=== PATIENT | female | born 1960 | race Caucasian/White ===

== ENCOUNTER 2019-05-27 22:25 | Emergency (ER) | payer MEDICARE, OTHER ==
[~2019-05-27] VITALS: Ht 162.6 cm; Wt 61.2 kg
[2019-05-27] MEDS ORDERED: ONDANSETRON HCL/PF 4 MG/2 ML VIAL ONE (22:42)
[2019-05-27] MEDS ORDERED: MORPHINE SULFATE INJ 2 MG/ML DISP.SYRIN ONE (22:43)
[2019-05-27 22:55] LABS: BASOPHILS # (AUTO) 0.3 /CMM (0.0-0.2); BASOPHILS % (AUTO) 4.1 % (0.0-2.0); EOSINOPHILS % (AUTO) 7.1 % (0.0-6.0); HEMATOCRIT 35 % (33-45); HEMOGLOBIN 12.3 g/dL (11.5-14.8); LYMPHOCYTES # (AUTO) 1.8 /CMM (0.8-4.8); LYMPHOCYTES % (AUTO) 28.3 % (20.0-44.0); MEAN CORPUSCULAR HGB CONC 35 g/dl (31.0-36.0); MEAN CORPUSCULAR VOLUME 101 fL (82-100); MONOCYTES # (AUTO) 0.3 /CMM (0.1-1.30); MONOCYTES % (AUTO) 5.5 % (2.0-12.0); NEUTROPHILS # (AUTO) 3.4 /CMM (1.8-8.9); PLATELET COUNT (AUTO) 287 /CMM (150-450); RED BLOOD CELL COUNT(AUTO) 3.49 MIL/uL (4.0-5.2); WHITE BLOOD COUNT (AUTO) 6.2 K/uL (4.3-11.0)
[2019-05-27 22:58] LABS: APPEARANCE,URINE Clear (CLEAR); BILIRUBIN,URINE Negative (NEGATIVE); BLOOD, URINE Negative Ery/uL (NEGATIVE); COLOR,URINE Yellow (YELLOW); KETONES,URINE Negative (NEGATIVE); LEUKOCYTE ESTERASE ,URINE Negative (NEGATIVE); NITRITE, URINE Negative (NEGATIVE); PROTEIN,URINE 30 mg/dl (NEGATIVE); UGLUCOSE Negative (NEGATIVE); UROBILINOGEN,URINE 0.2 EU/dL (0.2)
--- NOTE | 2019-05-27 22:59 | NUR ---
BIBSELF W/ FRIEND TO ER BED 4. AAOX4. NO RESP DISTRESS NOTED. AMBULATORY. C/O ABDOMINAL PAIN X 3 DAYS. PT REPORTS PAIN ON THE LEFT AND RIGHT LATERAL ABDOMEN. RATES PAIN AT 6/10. AGGREVATED BY MOVEMENT SUCH STANDING UP FROM LYING OR SITTING AND BENDING DOWN. REPORT PAIN CRAMPING AND TIGHTNESS FEELING. PT DENIES CP. NO N/V. MD WAS T BEDSIDE FOR EVAL. ORDERS RECEIVED NOTED AND CARRIED OUT. IV LINE OBTAINED ON THE R AC 20G. BLOOD DRAWN AND GIVEN TO ATTENDANT CAMPGROUND AT BEDSIDE.
[2019-05-27] MEDS ORDERED: ONDANSETRON HCL/PF 4 MG/2 ML VIAL IVP ONE (23:00)
[2019-05-27] MEDS ORDERED: IV NS 0.9% 500 ML BAG IV ONE (23:00)
[2019-05-27] MEDS ORDERED: MORPHINE SULFATE INJ 2 MG/ML DISP.SYRIN IV ONE (23:00)
[2019-05-27 23:07] LABS: CALCIUM, SERUM 8.3 mg/dL (8.5-10.1); CARBON DIOXIDE 27 mmol/L (21-32); CHLORIDE 96 mmol/L (98-107); CREATININE 0.6 mg/dL (0.6-1.3); GLUCOSE 95 mg/dL (74-106); POTASSIUM 4.2 mmol/L (3.5-5.1); SODIUM SERUM 129 mmol/L (136-145); UREA NITROGEN, BLOOD 14 mg/dL (7-18)
[2019-05-27] MEDS ORDERED: KETOROLAC TROMETHAMINE INJ 30 MG/ML VIAL ONE (23:09)
[2019-05-27 23:13] LABS: ALANINE AMINOTRANSFERASE 35 U/L (12-78); ALBUMIN 3.8 g/dL (3.4-5.0); ALKALINE PHOSPHATASE 104 U/L (46-116); ASPARTATE AMINOTRANSFERASE 24 U/L (15-37); BILIRUBIN,DIRECT 0.1 mg/dL (0.0-0.2); BILIRUBIN,TOTAL 0.4 mg/dL (0.2-1.0); LIPASE 313 U/L (73-393); TOTAL PROTEIN, SERUM 6.1 g/dL (6.4-8.2)
[2019-05-27 23:18] LABS: BACTERIA,URINE Many /HPF (None Seen); RBC,URINE 0-2 /HPF (0-2); SQUAMOUS EPITHELIAL CELL,UR Moderate /HPF (None Seen); YEAST,URINE Few /HPF (None Seen)
[2019-05-27] MEDS ORDERED: KETOROLAC TROMETHAMINE INJ 30 MG/ML VIAL IV ONE (23:30)
--- NOTE | 2019-05-27 23:53 | NUR ---
Patient discharged to home in stable condition. Written and verbal after care instructions given. Patient verbalizes understanding of instruction.IV removed. Catheter intact and site benign. Pressure and 4x4 applied to site. No bleeding noted. Pt ambulatory with a steady gait
[2019-05-27 23:54] VITALS: BP 119/67
== END 2019-05-27 23:56 | disposition home or self-care (01) ==
LOC: ER 22:26
DX: K59.00 Constipation, unspecified (principal); R11.2 Nausea with vomiting, unspecified; F31.9 Bipolar disorder, unspecified
CPT/HCPCS: 36415; 71045; 74176; 80048; 80076; 81001; 83690; 84484; 85025; 85730; 87086; 93005; 96374; 96375; 99284; J1885; J2405; J7030; J7040; 81000-TC; J2270

== ENCOUNTER 2019-05-29 23:43 | Emergency (ER) | payer MEDICARE, OTHER ==
[~2019-05-29] VITALS: Ht 162.6 cm; Wt 60.3 kg
[2019-05-29 23:49] VITALS: BP 154/1
[2019-05-30] MEDS ORDERED: KETOROLAC TROMETHAMINE INJ 60 MG/2 ML VIAL IM ONE ×2 (00:15→01:30)
[2019-05-30] MEDS ORDERED: BACLOFEN (10 MG) 10 MG TABLET ONE (00:15)
[2019-05-30] MEDS ORDERED: BACLOFEN (10 MG) 10 MG TABLET PO ONE (01:30)
== END 2019-05-30 01:52 | disposition home or self-care (01) ==
LOC: ER 23:44
DX: M62.830 Muscle spasm of back (principal); F31.9 Bipolar disorder, unspecified
CPT/HCPCS: 96372; 99283; J1885

== ENCOUNTER 2019-07-21 10:34 | Emergency (ER) | payer OTHER ==
[~2019-07-21] VITALS: Ht 162.6 cm; Wt 73.5 kg
[2019-07-21 10:44] VITALS: BP 131/74
[2019-07-21] MEDS ORDERED: HYDROMORPHONE 1 MG/1 ML DISP.SYRIN ONE (11:14)
[2019-07-21] MEDS ORDERED: KETOROLAC TROMETHAMINE INJ 30 MG/ML VIAL ONE (11:14)
[2019-07-21] MEDS ORDERED: KETOROLAC TROMETHAMINE INJ 30 MG/ML VIAL IM ONE (11:30)
[2019-07-21] MEDS ORDERED: HYDROMORPHONE 1 MG/1 ML DISP.SYRIN IM ONE (11:30)
[2019-07-21] MEDS ORDERED: LEVO75TA7 PO (16:00)
[2019-07-21] MEDS ORDERED: GABA600T12 PO (16:00)
[2019-07-21] MEDS ORDERED: TRAM50TA2 PO (16:00)
[2019-07-21] MEDS ORDERED: BACL10TA PO (16:00)
[2019-07-21] MEDS ORDERED: BUPR150T10 PO (16:00)
[2019-07-21] MEDS ORDERED: HYDR-3972 PO (16:00)
[2019-07-21] MEDS ORDERED: PROG100C15 PO (16:00)
[2019-07-21] MEDS ORDERED: TRAZ-252 PO (16:00)
[2019-07-21] MEDS ORDERED: QUET100T PO (16:00)
[2019-07-22] MEDS ORDERED: PROG100C15 PO (10:13)
[2019-07-22] MEDS ORDERED: FLUO40CA49 PO (10:13)
== END 2019-07-21 13:28 | disposition home or self-care (01) ==
LOC: ER 10:35
DX: G89.29 Other chronic pain (principal); M54.5 Low back pain; F31.9 Bipolar disorder, unspecified; Z60.2 Problems related to living alone
CPT/HCPCS: 96372 ×2; 99283; J1170; J1885

== ENCOUNTER 2019-07-21 13:47 | Inpatient (IN) | payer OTHER ==
[~2019-07-21] VITALS: Ht 162.6 cm; Wt 73.5 kg
--- NOTE | 2019-07-21 13:47 | NUR ---
PT RECENTLY DISCHARGED, BACK FROM SAME REASON, CHRONIC BACK PAIN, PT AAOX4, -SOB, NAD NOTED, VSS, PENDING MD PRABHAKAR
[2019-07-21 14:21] LABS: BASOPHILS # (AUTO) 0.1 /CMM (0.0-0.2); BASOPHILS % (AUTO) 0.8 % (0.0-2.0); EOSINOPHILS % (AUTO) 2.9 % (0.0-6.0); HEMATOCRIT 40 % (33-45); LYMPHOCYTES % (AUTO) 21.8 % (20.0-44.0); MEAN CORPUSCULAR HGB CONC 35 g/dl (31.0-36.0); MEAN CORPUSCULAR VOLUME 102 fL (82-100); MONOCYTES # (AUTO) 0.6 /CMM (0.1-1.30); MONOCYTES % (AUTO) 6.2 % (2.0-12.0); NEUTROPHILS # (AUTO) 6.1 /CMM (1.8-8.9); NEUTROPHILS % (AUTO) 68.3 % (43.0-81.0); PLATELET COUNT (AUTO) 306 /CMM (150-450); RED BLOOD CELL COUNT(AUTO) 3.98 MIL/uL (4.0-5.2)
[2019-07-21 14:28] LABS: CALCIUM, SERUM 9.5 mg/dL (8.5-10.1); CREATININE 1.1 mg/dL (0.6-1.3); POTASSIUM 3.7 mmol/L (3.5-5.1)
--- NOTE | 2019-07-21 14:35 | NUR ---
epic paged for panel call
--- NOTE | 2019-07-21 14:45 | NUR ---
panel call in progress
--- NOTE | 2019-07-21 15:01 | NUR ---
REPORT GIVEN TO MARIANO HERNANDEZ FOR MONI PT WILL BE TRANSPORTED TO 3RD FLOOR
--- NOTE | 2019-07-21 15:15 | NUR ---
MS RN NOTES PATIENT ARRIVED AT UNIT [facility]IA [facility], REPORT RECEIVED FROM KRISTI HERNANDEZ. PATIENT AWAKE, A/O X 3. NO ACUTE DISTRESS. NO CHANGES IN LOC NOTED. PATIENT ABLE TO TRANSFER FROM [facility] [facility] TO BED WITH HAND-HELD ASSISTANCE. ABLE TO STAND UP AND SIT FROM [facility] TO HOSPITAL BED. PATIENT ADMITTED UNDER MEDICAL SUPERVISION OF DR ROACH, AWARE OF PATIENT ARRIVAL. PATIENT ORIENTED TO UNIT, STAFF, PLAN OF CARE, PATIENT VERBALIZED UNDERSTANDING. SAFETY PRECAUTIONS IN PLACE. WILL CONTINUE TO MONITOR. BED LOCKED AND IN LOW POSITION. BILATERAL UPPER SIDE RAILS UP AND LOCKED. CALL LIGHT WITHIN EASY REACH
--- NOTE | 2019-07-21 15:20 | NUR ---
pt transported to 3rd floor
[2019-07-21 16:00] VITALS: BP 162/87
[2019-07-21] MEDS ORDERED: HYDR-3972 PO (16:00)
[2019-07-21] MEDS ORDERED: QUET100T PO (16:00)
[2019-07-21] MEDS ORDERED: LEVO75TA7 PO (16:00)
[2019-07-21] MEDS ORDERED: TRAZ-252 PO (16:00)
[2019-07-21] MEDS ORDERED: PROG100C15 PO (16:00)
[2019-07-21] MEDS ORDERED: GABA600T12 PO (16:00)
[2019-07-21] MEDS ORDERED: BUPR150T10 PO (16:00)
[2019-07-21] MEDS ORDERED: BACL10TA PO (16:00)
[2019-07-21] MEDS ORDERED: TRAM50TA2 PO (16:00)
--- NOTE | 2019-07-21 16:20 | NUR ---
MS RN NOTES PATIENT REFUSED SKIN ASSESSMENT. RISKS AND BENEFITS EXPLAINED BUT TO NO AVAIL. PATIENT STRONGLY REFUSED. WILL CONTINUE TO MONITOR
[2019-07-21] MEDS ORDERED: ONDANSETRON HCL/PF 4 MG/2 ML VIAL IVP PRN (16:30)
[2019-07-21] MEDS ORDERED: Z GUARD REMEDY 2 OZ OINT TP PRN (16:30)
[2019-07-21] MEDS ORDERED: ACETAMINOPHEN 325 MG TABLET PO PRN (16:30)
[2019-07-21] MEDS ORDERED: ZOLPIDEM TARTRATE 5 MG TABLET PO PRN (16:30)
[2019-07-21] MEDS ORDERED: GABAPENTIN 400 MG CAPSULE PO SCH (17:00)
[2019-07-21] MEDS: buPROPion SR 150 MG TABLET.ER PO SCH (17:05)
[2019-07-21] MEDS: HYDROCODONE/APAP 5/325MG 1 EACH TABLET PO PRN (17:07)
[2019-07-21] MEDS: GABAPENTIN 300 MG CAPSULE PO SCH (17:08)
--- NOTE | 2019-07-21 17:37 | NUR ---
MS RN NOTES PATIENT AGREED TO CHANGE SHIRT TO [facility]OSPITAL [facility] BUT REFUSED TO REMOVE HER PANTS. ABLE TO DO SKIN ASSESSMENT WITH BOTH FEET AND BOTH UPPER EXTREMITIES, TORSO AND BACK, NO SKIN BREAKDOWN NOTED. UNABLE TO DO FURTHER SKIN ASSESSMENT PATIENT CONTINUES TO REFUSE TO CHANGE OR REMOVE PANTS. RISKS AND BENEFITS EXPLAINED BUT TO NO AVAIL. PATIENT REFUSED FURTHER SKIN ASSESSMENT. WILL CONTINUE TO MONITOR
--- NOTE | 2019-07-21 18:42 | NUR ---
MS RN CLOSING NOTES PATIENT IS RESTING IN BED WITH UPPER SIDE RAILS UP X2, BED IN LOW LOCKED POSITION, SEMI-FOWLERS. NO CHANGES IN LOC NOTED, NO ACUTE DISTRESS. WILL TRANSFER CONTINUATION OF CARE TO NEXT SHIFT.
--- NOTE | 2019-07-21 19:10 | NUR ---
MS/RN OPENING NOTES PT RECEIVED AWAKE, SITTING UP IN BED. A/OX4. ON ROOM AIR, BREATHING EVEN AND UNLABORED. IN NO ACUTE RESPIRATORY DISTRESS. NOTES BACK PAIN AT A TOLERABLE LEVEL OF 4/10 CURRENTLY. RECEIVED DAILY DOSE OF NORCO ALREADY. IV TO RAC SALINE LOCKED. BED IN LOW/LOCKED POSITION WITH CALL LIGHT IN REACH. BILAT. UPPER SIDE RAILS IN PLACE. ENCOURAGED USE OF CALL LIGHT AND VERBALIZED UNDERSTANDING. WILL CONTINUE TO MONITOR
[2019-07-21 20:00] VITALS: BP 119/72
[2019-07-21] MEDS: ENOXAPARIN SODIUM 40 MG/0.4 ML DISP.SYRIN SQ SCH (21:00)
[2019-07-21] MEDS: TRAZODONE 50 MG TABLET PO SCH (21:23)
[2019-07-21] MEDS: QUETIAPINE FUMARATE 100 MG TABLET PO SCH (21:23)
--- NOTE | 2019-07-21 21:35 | NUR ---
MS/RN NOTES PT REFUSED SCHEDULED LOVENOX DESPITE EDUCATION OF RISKS/BENEFITS X3. STILL STRONGLY REFUSING
--- NOTE | 2019-07-21 21:40 | NUR ---
MS/RN NOTES ABLE TO REMOVE PT'S PANTS/UNDERWEAR FOR SKIN CHECK, HOWEVER PT UNABLE TO TURN TO CHECK THE BACK. SKIN CLEAR OTHERWISE
[2019-07-22] MEDS: BACLOFEN (10 MG) 10 MG TABLET PO PRN ×2 (01:15→21:43)
[2019-07-22 06:41] LABS: BASOPHILS % (AUTO) 0.6 % (0.0-2.0); HEMATOCRIT 34 % (33-45); LYMPHOCYTES # (AUTO) 1.4 /CMM (0.8-4.8); LYMPHOCYTES % (AUTO) 16.6 % (20.0-44.0); MEAN CORPUSCULAR HGB CONC 36 g/dl (31.0-36.0); MEAN CORPUSCULAR VOLUME 99 fL (82-100); MONOCYTES # (AUTO) 0.5 /CMM (0.1-1.30); MONOCYTES % (AUTO) 6.3 % (2.0-12.0); NEUTROPHILS # (AUTO) 6.1 /CMM (1.8-8.9); NEUTROPHILS % (AUTO) 73.5 % (43.0-81.0); PLATELET COUNT (AUTO) 251 /CMM (150-450); RED BLOOD CELL COUNT(AUTO) 3.38 MIL/uL (4.0-5.2); WHITE BLOOD COUNT (AUTO) 8.2 K/uL (4.3-11.0)
--- NOTE | 2019-07-22 06:50 | NUR ---
MS/RN CLOSING NOTES PT RESTING IN BED. A/OX4. REMAINS ON ROOM AIR, BREATHING EVEN AND UNLABORED. DENIES SOB, IN NO ACUTE DISTRESS. INTERMITTENT MUSCLE SPASMS DURING SHIFT. COMFORTABLE AT THIS TIME. REFUSED TURNING/REPOSITIONING AND SKIN CHECK TO THE BACK. REFUSED PM/RODRIGO CARE MULTIPLE TIMES DURING SHIFT DESPITE EDUCATION ON HYGIENE. "WILL DO IT IN THE MORNING". IV TO RAC PATENT AND INTACT. BED REMAINS IN LOW/LOCKED POSITION WITH CALL LIGHT IN REACH. HOB ELEVATED. SIDE RAILS UPX3. WILL ENDORSE TO DAY SHIFT RN MONI
[2019-07-22 07:04] LABS: ALBUMIN 3.6 g/dL (3.4-5.0); BILIRUBIN,TOTAL 0.5 mg/dL (0.2-1.0); CALCIUM, SERUM 9.3 mg/dL (8.5-10.1); CREATININE 1.1 mg/dL (0.6-1.3); POTASSIUM 4.1 mmol/L (3.5-5.1); TOTAL PROTEIN, SERUM 6.3 g/dL (6.4-8.2)
--- NOTE | 2019-07-22 07:33 | NUR ---
MS RN OPENING NOTE PATIENT IN BED RESTING COMFORTABLY. PATIENT IN NO ACUTE DISTRESS. NO SOB NOTED. PATIENT BREATHING IS EVEN AND UNLABORED. PATIENT STATES BACK PAIN THAT IS 5/10 AND IS TOLERABLE. HOB IS ELEVATED. SAFETY PRECAUTIONS IN PLACE. PATIENT BED IS LOCKED AND IN LOWEST POSITION. CALL LIGHT WITHIN REACH. WILL CONTINUE TO MONITOR.
[2019-07-22 08:00] VITALS: BP 139/87
[2019-07-22] MEDS: GABAPENTIN 300 MG CAPSULE PO SCH ×3 (09:15→18:48)
[2019-07-22] MEDS: LEVOTHYROXINE SODIUM 75 MCG TABLET PO SCH (09:15)
[2019-07-22] MEDS: buPROPion SR 150 MG TABLET.ER PO SCH ×2 (09:15→18:48)
[2019-07-22] MEDS ORDERED: FLUO40CA49 PO (10:13)
[2019-07-22] MEDS ORDERED: PROG100C15 PO (10:13)
[2019-07-22] MEDS: HYDROCODONE/APAP 5/325MG 1 EACH TABLET PO PRN (11:25)
[2019-07-22] MEDS ORDERED: DIAZEPAM 5 MG/ML 2 ML DISP.SYRIN IV PRN (14:00)
[2019-07-22] MEDS: LORAZEPAM INJ 2 MG/ML VIAL IV PRN (15:52)
[2019-07-22 16:00] VITALS: BP 137/80
--- NOTE | 2019-07-22 18:10 | NUR ---
MS RN NOTE PATIENT CAME BACK FROM MRI. PER KE AUDIO ENGINEER, WITNESSED ASSISTED PATIENT FALL AT MRI ROOM. PER KE PATIENT HAD BACK MUSCLE SPASMS AND WHEN SWITCHING TO DO NEXT MRI FROM THORACIC TO MRI OF BRAIN PATIENT HAD MUSCLE SPASM DURING SWITCH. AND FELL SLOWLY WITH ASSISTANCE FROM KE TO GROUND WITH NO HARD IMPACT. WHEN MRI COMPLETED AND BACK TO FLOOR. PATIENT ASSESSED, NO NEW SKIN BREAKDOWN NOTED. NO NEW PAIN NOTED IN EXTREMITIES. NO BRUISING NOTED. VITAL SIGNS WNL. PATIENT BACK IN BED RESTING COMFORTABLY. PATIENT STATED " I DONT REALLY WANT TO TALK RIGHT NOW, IM TIRED BUT I DID FALL SLOWLY WITH HELP DUE TO MY BACK PAIN." PATIENT IN NO ACUTE DISTRESS. NO SOB NOTED. PATIENT BREATHING IS EVEN AND UNLABORED. NOTIFIED ALCIDES ROACH AND MADE AWARE, NO NEW ORDERS AT THIS TIME. WILL CONTINUE TO MONITOR.
[2019-07-22 18:30] VITALS: BP 136/72
--- NOTE | 2019-07-22 18:45 | NUR ---
MS RN CLOSING NOTE PATIENT IN BED SLEEPING COMFORTABLY. PATIENT IN NO ACUTE DISTRESS. NO SOB NOTED. PATIENT BREATHING IS EVEN AND UNLABORED. PATIENT NEEDS AND CONCERNS ADDRESSED. PATIENT KEPT CLEAN, DRY AND COMFORTABLE THROUGHOUT SHIFT. SAFETY PRECAUTIONS IN PLACE. BED ALARM IS ON. PATIENT BED IS LOCKED AND IN LOWEST POSITION. CALL LIGHT WITHIN REACH. WILL ENDORSE CARE TO PM SHIFT FOR MONI.
[2019-07-22] MEDS: KETOROLAC TROMETHAMINE 10 MG TABLET PO PRN (18:49)
[2019-07-22 20:00] VITALS: BP 137/92
[2019-07-22] MEDS: QUETIAPINE FUMARATE 100 MG TABLET PO SCH (21:43)
[2019-07-22] MEDS: TRAZODONE 50 MG TABLET PO SCH (21:43)
[2019-07-22] MEDS: ENOXAPARIN SODIUM 40 MG/0.4 ML DISP.SYRIN SQ SCH (21:44)
[2019-07-23] MEDS: HYDROCODONE/APAP 5/325MG 1 EACH TABLET PO PRN (04:10)
--- NOTE | 2019-07-23 06:50 | NUR ---
MS RN PM CLOSING NOTE PATIENT IN BED SLEEPING COMFORTABLY. PATIENT IN NO ACUTE DISTRESS. NO SOB NOTED. PATIENT BREATHING IS EVEN AND UNLABORED. PATIENT OCCASIONALLY YELLS OUT REAL LOUD D/T BACK SPASMS PAIN PATIENT DENIES NEED TO VOID STATES SHE DID NOT GO DURING THE NIGHT PT NOT ON IVF. PT REPORTS THAT PIAN MEDICATION I ONLY A LITTLE BIT HELPFUL THE PAIN SUDDENLY COMES THEN GOES. PT STATES LYING FLAT AND STILL HELPS WITH THE PAIN. SAFETY PRECAUTIONS IN PLACE. BED ALARM IS ON. PATIENT BED IS LOCKED AND IN LOW POSITION. CALL LIGHT WITHIN REACH.
[2019-07-23 08:00] VITALS: BP 143/83
--- NOTE | 2019-07-23 08:01 | NUR ---
RN OPENING NOTES RECEIVED PATIENT RESTING IN BED COMFORTABLY AT THIS TIME. SHE IS AOX4, VERBAL, AND ON BEDREST. SHE IS ON RA, TOLERATING WELL, NO S.SX OF RESP DISTRESS OR SOB. PT COMPLAINS OF 10/10 BACK PAIN, ESPECIALLY WHEN MOVING. SKIN IS INTACT. CHEST RISES AND FALLS EVENLY. SHE IS ON A REGULAR DIET, TOLERATING WELL. IV SITE ON RAC 20 G IS PATENT AND INTACT. SAFETY MEASURES HAVE BEEN IMPLEMENTED, CALL LIGHT IS WITHIN REACH, BED IS IN LOWEST AND LOCKED POSITION, SIDE RAILS UP X2, WILL CONTINUE TO MONITOR FOR ANY CHANGES.
[2019-07-23] MEDS: BACLOFEN (10 MG) 10 MG TABLET PO PRN (08:30)
[2019-07-23] MEDS: LEVOTHYROXINE SODIUM 75 MCG TABLET PO SCH (08:30)
[2019-07-23] MEDS: GABAPENTIN 300 MG CAPSULE PO SCH ×3 (08:30→16:36)
[2019-07-23] MEDS: buPROPion SR 150 MG TABLET.ER PO SCH ×2 (08:30→16:36)
[2019-07-23] MEDS ORDERED: HYDROMORPHONE INJ 0.5 MG/0.5 ML SYRINGE IV ONE (12:30)
[2019-07-23] MEDS ORDERED: HYDROMORPHONE INJ 2 MG/ML DISP.SYRIN IV ONE (12:30)
[2019-07-23] MEDS: LORAZEPAM INJ 2 MG/ML VIAL IV PRN (14:33)
[2019-07-23 16:00] VITALS: BP 136/78
--- NOTE | 2019-07-23 18:57 | NUR ---
RN CLOSING NOTES PATIENT IS RESTING COMFORTABLY IN BED. SHE HAS VERY STRONG PAIN THAT COMES AND GOES IN HER BACK. NO S/SX OF RESP DISTRESS OR SOB. CHEST RISES AND FALLS EVENLY. NO ACUTE CHANGES OCCURRED THROUGHOUT THE SHIFT, VITAL SIGNS ARE STABLE, PT NEEDS HAVE BEEN MET. PT IS TO BE TRANSFERRED TO ANOTHER ACUTE HOSPITAL TOMORROW. SAFETY MEASURES HAVE BEEN IMPLEMENTED, CALL LIGHT IS WITHIN REACH, SIDE RAILS UP X2, PT WILL BE ENDORSED TO NIGHTSHIFT RN FOR CONTINUITY OF CARE.
--- NOTE | 2019-07-23 19:30 | NUR ---
RN NOTES RECEIVED PT. AWAKE ON BED, A/OX3, COMPLAINED OF BACK PAIN BUT WERE STILL WAITING FOR THE PHARMACY TO VERIFY MEDICATION, NO SOB, CALL LIGHT WITHIN REACH, [id number], CONTINUE TO MONITOR
[2019-07-23 20:00] VITALS: BP 148/103
[2019-07-23] MEDS: KETOROLAC TROMETHAMINE 10 MG TABLET PO PRN (20:03)
--- NOTE | 2019-07-23 20:09 | NUR ---
RN NOTES COMPLAINED OF TERRIBLE PAIN PN HER BACK- [id number] PO GIVEN ORDERED, V/S STABLE
[2019-07-23] MEDS: ENOXAPARIN SODIUM 40 MG/0.4 ML DISP.SYRIN SQ SCH (21:31)
[2019-07-23] MEDS: TRAZODONE 50 MG TABLET PO SCH (21:32)
[2019-07-23] MEDS: QUETIAPINE FUMARATE 100 MG TABLET PO SCH (21:32)
--- NOTE | 2019-07-23 22:51 | NUR ---
RN NOTES SPOKE TO DR. DE LA PAZ AND GOT AN ORDER TO CHANGE BACLOFEN 10MG PO DAILY PRN TO BID PRN, ORDER NOTED AND CARRIED OUT
--- NOTE | 2019-07-24 06:28 | NUR ---
RN NOTES SLEEPING BUT AROUSABLE, NOT IN DISTRESS, NO PAIN NOTED, CALL LIGHT WITHIN REACH, [id number], PT. NEEDS ATTENDED
[2019-07-24 08:00] VITALS: BP 123/74
--- NOTE | 2019-07-24 08:00 | NUR ---
MS/RN OPENING NOTES RECEIVED PATIENT ON BED RESTING COMFORTABLY. CONVERSANT, PATIENT IN NO ACUTE DISTRESS. NO SOB NOTED. PATIENT BREATHING IS EVEN AND UNLABORED. PATIENT IS ON PAIN RATED 7/10, TORADOL 15MG PO WAS GIVEN. HOB IS ELEVATED. SAFETY PRECAUTIONS IN PLACE. PATIENT BED IS LOCKED AND IN LOWEST POSITION. CALL LIGHT WITHIN REACH. WILL CONTINUE TO MONITOR.
[2019-07-24] MEDS: buPROPion SR 150 MG TABLET.ER PO SCH ×2 (09:20→17:03)
[2019-07-24] MEDS: GABAPENTIN 300 MG CAPSULE PO SCH ×3 (09:20→17:03)
[2019-07-24] MEDS: LEVOTHYROXINE SODIUM 75 MCG TABLET PO SCH (09:20)
[2019-07-24] MEDS: KETOROLAC TROMETHAMINE 10 MG TABLET PO PRN ×2 (09:21→17:13)
[2019-07-24 16:00] VITALS: BP 135/81
--- NOTE | 2019-07-24 18:22 | NUR ---
MS/RN CLOSING NOTES PATIENT IS ON BED COMFORTABLY. PATIENT IN NO ACUTE DISTRESS. NO SOB NOTED. PATIENT BREATHING IS EVEN AND UNLABORED. PATIENT NEEDS AND CONCERNS ADDRESSED. PATIENT KEPT CLEAN, DRY AND COMFORTABLE THROUGHOUT SHIFT. SAFETY PRECAUTIONS IN PLACE. BED ALARM IS ON. PATIENT BED IS LOCKED AND IN LOWEST POSITION. CALL LIGHT WITHIN REACH. WILL ENDORSE CARE TO PM SHIFT
--- NOTE | 2019-07-24 19:35 | NUR ---
MS RN OPENING NOTES PATIENT RECEIVED RESTING IN BED, A/O x4. STABLE ON RA WITH BREATHING EVEN AND UNLABORED, NO SOB NOTED. NO CURRENT COMPLAINTS OF PAIN OR DISCOMFORT. NO ACUTE DISTRESS NOTED. IV LOCATED ON R AC#20. SAFETY PRECAUTIONS IN PLACE WITH BED IN LOWEST POSITION, BREAKS ON, SIDE RAILS UP X2, AND CALL LIGHT WITHIN REACH. WILL CONTINUE TO MONITOR.
[2019-07-24 20:00] VITALS: BP 146/98
[2019-07-24] MEDS: HYDROCODONE/APAP 5/325MG 1 EACH TABLET PO PRN (20:24)
--- NOTE | 2019-07-24 20:26 | NUR ---
MS RN NOTES PATIENTS COMPLAINING OF PAIN ON BACK AREA RATING 8/10. NORCO PRN GIVEN. WILL CONTINUE TO MONITOR.
[2019-07-24] MEDS: TRAZODONE 50 MG TABLET PO SCH (21:26)
[2019-07-24] MEDS: QUETIAPINE FUMARATE 100 MG TABLET PO SCH (21:26)
[2019-07-24] MEDS: ENOXAPARIN SODIUM 40 MG/0.4 ML DISP.SYRIN SQ SCH (21:26)
[2019-07-25] MEDS: KETOROLAC TROMETHAMINE 10 MG TABLET PO PRN ×3 (05:24→21:58)
--- NOTE | 2019-07-25 06:48 | NUR ---
MS RN CLOSING NOTES PATIENT CURRENTLY RESTING IN BED A/O X4, ABLE TO MAKE NEEDS KNOWN. STABLE ON RA WITH BREATHING EVEN AND UNLABORED, NO SOB NOTED. NO SIGNS OF ACUTE DISTRESS. NO CURRENT COMPLAINTS OF PAIN, JUST SLIGHT DISCOMFORT. IV LOCATED ON R AC #20. ALL NEEDS WERE ATTENDED TO THROUGHOUT THE SHIFT. PATIENT KEPT CLEAN AND DRY. SAFETY PRECAUTIONS IN PLACE WITH BED IN LOWEST POSITION, CALL LIGHT WITHIN REACH, BREAKS ON, AND SIDE RAILS UP X2. WILL ENDORSE TO ONCOMING SHIFT ABOUT MONI.
[2019-07-25 08:00] VITALS: BP 131/69
--- NOTE | 2019-07-25 08:00 | NUR ---
m/s project design engineer: initial assessment received pt in bed awake, a/ox3. pt has low motivation on adl's. pt needs assistance. no c/o pain at this time. provided bsc and instructed to call for assistance. will continue to monitor.
[2019-07-25] MEDS: GABAPENTIN 300 MG CAPSULE PO SCH ×3 (08:51→16:29)
[2019-07-25] MEDS: buPROPion SR 150 MG TABLET.ER PO SCH ×2 (08:51→16:28)
[2019-07-25] MEDS: LEVOTHYROXINE SODIUM 75 MCG TABLET PO SCH (08:51)
--- NOTE | 2019-07-25 10:00 | NUR ---
m/s quality assurance project manager: notes still awaiting for authorization re: transfer to another hospital for higher level of care. case management still making arrangement. pt aware.
[2019-07-25] MEDS: FLUOXETINE HCL 20 MG CAPSULE PO SCH (11:03)
--- NOTE | 2019-07-25 12:00 | NUR ---
m/s follow up manager: notes resting comfortable in bed. instructed to call for assistance. will continue to monitor.
--- NOTE | 2019-07-25 13:28 | NUR ---
m/s wallpaper hanger: notes pt request for toradol for 7 lower back pain. toradol 15mg po given as ordered. instructed to call for assistance. will continue to monitor.
--- NOTE | 2019-07-25 14:28 | NUR ---
m/s bridge design engineer: notes pt resting comfortable. voiced no discomfort at this time.
[2019-07-25] MEDS: BACLOFEN (10 MG) 10 MG TABLET PO PRN (16:28)
[2019-07-25] MEDS: HYDROCODONE/APAP 5/325MG 1 EACH TABLET PO PRN (16:30)
--- NOTE | 2019-07-25 16:30 | NUR ---
m/s waitress: notes family/friend here and request to speak to case management. pt voiced out frustration re: transfer to another hospital for higher level of care. encouraged to verbalized feelings. joana (case management) already spoken to her about it and now the friend is talking to case management.
[2019-07-25 16:32] VITALS: BP 137/95
--- NOTE | 2019-07-25 19:00 | NUR ---
m/s powder cutting operator: notes bedside report given to sharron (xiomara) for continuity of care.
--- NOTE | 2019-07-25 19:19 | NUR ---
MS RN NOTES PATIENT IN BED, AWAKE. ALERT AND ORIENTED X 4. BREATHING EVEN AND UNLABORED ON ROOM AIR. DENIES ACUTE PAIN, NO ACUTE RESPIRATORY DISTRESS. IV ON RAC #20G, CLEAN DRY AND INTACT. SHOWS NO REDNESS, NO INFILTRATION. SAFETY PRECAUTION IN PLACE. BED IN LOWEST POSITION, LOCKED, AND CALL LIGHT KEPT WITHIN REACH. WILL CONTINUE TO MONITOR.
[2019-07-25 19:30] VITALS: BP 133/80
[2019-07-25 20:55] VITALS: BP 133/80
[2019-07-25] MEDS: TRAZODONE 50 MG TABLET PO SCH (21:36)
[2019-07-25] MEDS: QUETIAPINE FUMARATE 100 MG TABLET PO SCH (21:36)
[2019-07-25] MEDS: ENOXAPARIN SODIUM 40 MG/0.4 ML DISP.SYRIN SQ SCH (21:37)
--- NOTE | 2019-07-25 21:58 | NUR ---
MS RN NOTES PATIENT COMPLAINING OF PAIN 8/10 ON BACK. PATIENT RECEIVED TORADOL PRN ON [id number]. WILL CONTINUE TO MONITOR.
--- NOTE | 2019-07-26 06:44 | NUR ---
MS RN NOTES PATIENT IN BED, ASLEEP. ALERT AND ORIENTED X 4. BREATHING EVEN AND UNLABORED ON ROOM AIR. DENIES ACUTE PAIN, NO ACUTE RESPIRATORY DISTRESS. IV ON RAC #20G, CLEAN DRY AND INTACT. SHOWS NO REDNESS, NO INFILTRATION. ALL DUE MEDICATIONS GIVEN. SAFETY PRECAUTION IN PLACE. BED IN LOWEST POSITION, LOCKED, AND CALL LIGHT KEPT WITHIN REACH. WILL ENDORSE TO ONCOMING NURSE.
--- NOTE | 2019-07-26 07:30 | NUR ---
PT RECEIVED RESTING COMFORTABLY IN BED. NO S/S OR C/O PAIN OR DISTRESS NOTED. SIDE RAILS UP X2, CALL LIGHT LEFT WITHIN REACH. WILL CONTINUE PLAN OF CARE.
[2019-07-26 08:00] VITALS: BP 143/80
[2019-07-26] MEDS: GABAPENTIN 300 MG CAPSULE PO SCH ×2 (08:53→12:22)
[2019-07-26] MEDS: buPROPion SR 150 MG TABLET.ER PO SCH (08:53)
[2019-07-26] MEDS: FLUOXETINE HCL 20 MG CAPSULE PO SCH (08:53)
[2019-07-26] MEDS: LEVOTHYROXINE SODIUM 75 MCG TABLET PO SCH (08:53)
[2019-07-26] MEDS: HYDROCODONE/APAP 5/325MG 1 EACH TABLET PO PRN (09:06)
[2019-07-26] MEDS: KETOROLAC TROMETHAMINE 10 MG TABLET PO PRN (12:22)
[2019-07-26] MEDS: BACLOFEN (10 MG) 10 MG TABLET PO PRN (14:49)
--- NOTE | 2019-07-26 15:00 | NUR ---
PT TRANSFER ORDER OBTAINED FOR TRANSFER TO [facility]. REPORT CALLED AND GIVEN TO HELGA. REPORT GIVEN TO EMS TRANSPORT TEAM. MEDICATION RECONCILIATION FORM COMPLETED AND GIVE TO PATIENT ALONG WITH COPIED CHART AND IMAGING DISKS. ALL PERSONAL BELONGINGS SENT WITH PATIENT. NO DISTRESS NOTED AT TIME OF DEPARTURE. PATIENT VERBALIZED UNDERSTANDING.
== END 2019-07-26 15:26 | disposition other institution (70) | DRG 552 ==
LOC: ER 13:47 → MED 14:48
PROVIDERS: ADMIT Nurse Practitioner Acute Care; ATTEND Nurse Practitioner Acute Care
DX: M50.00 Cervical disc disorder with myelopathy, unspecified cervical region (principal); M48.02 Spinal stenosis, cervical region; G89.29 Other chronic pain; E03.9 Hypothyroidism, unspecified; F31.9 Bipolar disorder, unspecified; R29.2 Abnormal reflex; M51.36 Other intervertebral disc degeneration, lumbar region; M25.78 Osteophyte, vertebrae
CPT/HCPCS: 36415; 70551-TC; 72141-TC; 72146-TC; 80048-TC; 80053-TC; 80061-TC; 83735-TC; 84100-TC; 85025-TC; 87081-TC; 97530-TC; G0378; J1170; J1650; J2060